=== PATIENT | female | born 1995 | race Caucasian/White ===

== ENCOUNTER 2019-06-26 02:21 | Emergency (ER) | payer OTHER ==
[~2019-06-26] VITALS: Ht 167.6 cm; Wt 65.0 kg
[2019-06-26 03:35] LABS: BASOPHILS # (AUTO) 0.05 x10^3/uL (0-0.1); BASOPHILS % (AUTO) 1 % (0-1); EOSINOPHILS # (AUTO) 0.12 x10^3/uL (0-0.4); EOSINOPHILS % (AUTO) 2 % (1-7); LYMPHOCYTES # (AUTO) 2.91 x10^3/uL (1-3.4); LYMPHOCYTES % (AUTO) 49 % (22-44); MD NO; MEAN CORPUSCULAR HEMOGLOBIN 30.7 pg (27.0-34.8); MEAN CORPUSCULAR HGB CONC 33.9 g/dL (32.4-35.8); MEAN CORPUSCULAR VOLUME 90.7 fL (80-100); MEAN PLATELET VOLUME 8.5 fL (7.4-10.4); MONOCYTES # (AUTO) 0.57 x10^3/uL (0.2-0.8); MONOCYTES % (AUTO) 10 % (2-9); NEUTROPHILS % (AUTO) 39 % (42-75); PLATELET COUNT 254 x10^3/uL (130-400); RED BLOOD COUNT 4.32 x10^6/uL (3.82-5.3)
[2019-06-26 03:40] LABS: ALBUMIN 3.4 g/dL (3.4-5.0); ANION GAP 7 mmol/L (5-15); CALCIUM 8.6 mg/dL (8.5-10.1); CHLORIDE 109 mmol/L (98-107); CREATININE 0.95 mg/dL (0.55-1.02)
[2019-06-26 03:42] VITALS: BP 101/51
[2019-06-26 03:44] LABS: TROPONIN I < 0.015 ng/mL (0.000-0.045)
== END 2019-06-26 04:31 | disposition home or self-care (01) ==
LOC: ED 04:29
DX: R07.89 Other chest pain (principal)
CPT/HCPCS: 36415; 71046; 80048; 82040; 84484; 84703; 85025; 93005; 99284